=== PATIENT | female | born 1960 | race African-American/Black ===

== ENCOUNTER 2017-05-09 09:20 | Day surgery (SDC) | payer OTHER ==
[2017-05-06 14:25] VITALS: BMI 42.2
--- NOTE | 2017-05-09 11:44 | OP ---
Operative Note - Note: Operative Date: 05/09/17 Pre-Operative Diagnosis: Right knee arthrofibrosis Operation: DARYL, Right Knee Post-Operative Diagnosis: Same as Pre-op Surgeon: Tripp Gallegos Anesthesia: General Operative Report Dictated: Yes
--- NOTE | 2017-05-09 11:45 | DS ---
Physical Examination Vital Signs: Vital Signs Temperature 97.7 F 05/09/17 10:05 Pulse Rate 77 05/09/17 10:05 Respiratory Rate 18 05/09/17 10:05 Blood Pressure 150/73 05/09/17 10:05 O2 Sat by Pulse Oximetry (%) 99 05/09/17 10:05 Discharge Summary Reason For Visit: ARTHROFIBROSIS RIGHT KNEE Condition: Good - Instructions Diet, Activity, Other Instructions: Begin moving the right knee today. No bending restrictions. Move as much as you tolerate it, , Disposition: HOME - Home Medications Comprehensive Discharge Medication List: Ambulatory Orders Aspirin [ASA -] 81 mg PO DAILY 05/06/17 Atorvastatin Ca [Lipitor] 20 mg PO HS 05/06/17 Carvedilol [Coreg -] 3.125 mg PO BID 05/06/17 Cevimeline HCl [Evoxac] 30 mg PO TID 05/06/17 Clopidogrel Bisulfate [Plavix -] 75 mg PO DAILY 05/06/17 Folic Acid 1 mg PO DAILY 05/06/17 Oxycodone HCl 5 mg PO ASDIR PRN 05/06/17 Pantoprazole Sodium [Protonix] 40 mg PO DAILY 05/06/17 Ramipril 5 mg PO BID 05/06/17
[2017-05-09] MEDS ORDERED: ONDANSETRON 4 MG/2 ML VIAL ONE (11:51)
[2017-05-09] MEDS ORDERED: oxyCODONE HCL 5 MG TABLET PO PRN ×2 (11:52)
[2017-05-09] MEDS ORDERED: PROMETHAZINE HCL 25 MG/1 ML VIAL IVPUSH PRN (11:52)
[2017-05-09] MEDS ORDERED: ONDANSETRON 4 MG/2 ML VIAL IVPUSH PRN (11:52)
[2017-05-09] MEDS ORDERED: LACTATED RINGERS SOLUTION 1,000 ML IV SCH (12:00)
[2017-05-09 12:51] VITALS: TEMP 98
[2017-05-09] MEDS ORDERED: oxyCODONE HCL 5 MG TABLET ONE (13:02)
[2017-05-09 13:56] VITALS: BP 154/88; PULSE 60
== END 2017-05-09 13:55 | disposition home or self-care (01) ==
LOC: FASU 09:20
PROVIDERS: ATTEND Orthopaedic Surgery
PROC: 0SSCXZZ Reposition Right Knee Joint, External Approach (ICD-10-PCS; principal; 2017-05-09 11:35)
DX: M24.661 Ankylosis, right knee (principal)
CPT/HCPCS: 94760